=== PATIENT | female | born 1990 | race Hispanic/Latino ===

== ENCOUNTER 2025-03-06 21:31 | Emergency (ER) | payer SELFPAY ==
[2025-03-06 21:34] VITALS: BP 116/83
[2025-03-06 22:05] LABS: Hematocrit 39.2 % (37.0-47.0); Hemoglobin 12.5 g/dL (12.0-16.0); Mean Corp Hgb Conc. 31.9 g/dL (33.0-37.0); Mean Corpuscular Volume 88.1 fL (81.0-99.0); Nucleated Red Blood Cells % 0 %; Platelet Count 249 10^3/uL (130-400); Red Cell Dist. Width 13.1 % (11.5-14.5)
[2025-03-06 22:14] LABS: HCG, Serum Qualitative Screen Negative
[2025-03-06 22:22] LABS: ALT (SGPT) 28 U/L (0-35); AST (SGOT) 21 U/L (14-36); Albumin 4.2 g/dl (3.5-5.0); Alkaline Phosphatase 171 U/L (38-126); Blood Urea Nitrogen 14 mg/dl (7-17); Calcium 9.2 mg/dl (8.4-10.2); Carbon Dioxide 26 mmol/L (22-30); Chloride 106 mmol/L (98-107); Glucose 115 mg/dl (70-99); Potassium 4.1 mmol/L (3.5-5.1); Sodium 137 mmol/L (135-145); Total Protein 7.4 g/dl (6.3-8.2); eGFR > 60.00
[2025-03-06 22:31] VITALS: BP 118/72
--- NOTE | 2025-03-06 22:40 | ED.GENMED ---
History of Present Illness
General
Chief Complaint: Fainting/Passed Out
Source: patient
Exam Limitations: none
Time Seen by Provider: 03/06/25 22:21
Nursing documentation reviewed up to this point in time: agreed with
History of Present Illness
History of Present Illness:
The patient is a 34-year-old female who reports that she took a whole THC gummy at around 5 PM last night. In about an hour, patient felt tingling and numb on both sides of her body. Additionally, patient felt lightheaded. She nearly passed out
but did not pass out. Patient reports mild palpitations. She denies chest pain and shortness of breath. Patient reports she now feels better. She denies nausea and vomiting. She denies a history of PE and DVT.
Past History
Past History
ED Past Medical History: None
ED Past Surgical History: Other
Social History
Tobacco: Non-smoker
Alcohol: Other
Drug: Other
Personal:
Living: with family
Employment: Employed
Family History
Family History: Other
Review of Systems
Review of Systems
Allergies reviewed?: Yes
All Other Systems: ROS reviewed and negative except as documented in HPI and ROS
Constitutional: Reports fatigue
EENT: Reports no symptoms
Respiratory: Reports no symptoms
Cardiac: Reports other (Near syncope but not syncope)
ABD/GI: Reports no symptoms
: Reports no symptoms
Musculoskeletal: Reports no symptoms
Skin: Reports no symptoms
Neurological: Reports weakness (Generalized weakness)
Endocrine: Reports no symptoms
Hematologic/Lymphatic: Reports no symptoms
Psychiatric: Reports no symptoms
Phy Exam
Physical Exam
Physical Exam:
Physical Exam
General: no apparent distress, not acutely ill.
Neck: supple. no meningeal signs. normal psoterior pharynx
Heart: s1/s2 regular rate and rhythm, no murmur. equal radial pulses.
Lungs: no acute respiratory distress. clear bilaterally
Abdomen: normal bowel sounds. not tender. no CVAT
Neuro: alert and oriented. no focal neurological deficits. Equal and intact sensation bilaterally. 5 out of 5 strength in all extremities without drift. Steady gait.
Skin: no rash
Psychiatric: well kept. interactive and cooperative
Extremities: no edema. no calf tenderness. negative homans. good distal pulses
Course
Orders/Labs/Results
Orders:
Orders
03/06/25 21:34
Electrocardiogram (*1) Urgent
Reason for Study: Syncope
EKG- Treatment ONCE
Test Result ONCE
03/06/25 21:50
Complete Blood Count/With Diff Urgent
Comprehensive Metabolic Panel Urgent
HCG, Serum Qualitative Screen Urgent
Abnormal Lab Results
03/06/25
21:50
WBC 11.7 H 10^3/uL
(4.8-10.8)
MCHC 31.9 L g/dL
(33.0-37.0)
MPV 11.6 H fL
(7.4-10.4)
Absolute Neuts (auto) 7.0 H 10^3/uL
(1.4-6.5)
Absolute Lymphs (auto) 3.6 H 10^3/uL
(1.2-3.4)
Absolute Monos (auto) 0.9 H 10^3/uL
(0.1-0.6)
Creatinine 0.4 L mg/dL
(0.6-1.0)
Glucose 115 H mg/dl
(70-99)
Alkaline Phosphatase 171 H U/L
(38-126)
03/06/25 21:50
03/06/25 21:50
Vital Signs
Initial and Last Documented VS:
Initial Vital Signs
Temp Pulse Resp BP Pulse Ox
97.5 F 91 16 116/83 99
03/06/25 21:34 03/06/25 21:34 03/06/25 21:34 03/06/25 21:34 03/06/25 21:34
Last Documented Vital Signs
Temp Pulse Resp BP Pulse Ox
98.4 F 85 17 118/72 99
03/06/25 22:43 03/06/25 22:43 03/06/25 22:43 03/06/25 22:43 03/06/25 22:43
MDM/Problems Addressed
Differential Diagnosis Includes:
Adverse effect of marijuana, cardiac arrhythmia, acute dehydration
MDM/Problems Addressed:
Patient presents with near syncopal episode after using THC gummy
*Pulse Oximetry
SaO2: 99
Oxygen Mode of Delivery: Room air
Patient hypoxic: no
*EKG
Interpreted by ED Provider?: Yes
Interpretation: normal
Comparison EKG: no comparison EKG present
Rate: normal
Rhythm: sinus
[place]: normal axis
Interval: normal interval
QRS Pattern: normal QRS
Ischemia: no ischemia
*[employer] M[employer]ainer Interpretation
Rate: normal
Interpretation: normal
Rhythm: sinus
*Critical Care Note
Total Time (30-74mins, 75-104mins- exclusive of procedures): Not Applicable
Data Reviewed
Source: patient
ED Attending Note
-
Portions of this chart may have been created with voice recognition software.� Occasional wrong word or��sound alike� substitutions may have occurred due to the inherent limitations of voice recognition software.
Discharge Plan
Departure
Patient Disposition: Home (Routine Discharge)
Date of Disposition: 03/06/25
Time of Disposition: 23:47
Patient with high blood pressure during this ER visit?: No
Condition: Good
Covid-19: Not Applicable
Discharge Problem:
Adverse effect of cannabis
Instructions: Marijuana, Near Fainting
Referrals:
NONE,* [Family Provider, Internal Medicine]
Activity Restrictions/Additional Instructions:
Beber muchos liquidos. Regresar por dolor en el pecho o desmayo
Interventions
Interventions:
*Risk Screen - Suicide Last Done: 03/06/25 21:34
*Neglect/Abuse Screening Last Done: 03/06/25 21:34
ED- Cardiac Assessment Last Done: 03/06/25 22:43
ED- Neurological Assessment Last Done: 03/06/25 22:43
Discharge Date and Time
Print Language: INDIAN
[2025-03-06 22:43] VITALS: BP 118/72
[2025-03-06 23:00] VITALS: BP 123/79
[2025-03-07] VITALS: BP 138/83
== END 2025-03-07 00:51 | disposition home or self-care (01) ==
LOC: EMR 21:31
PROVIDERS: EMERGENCY PHYSICIAN Emergency Medicine
DX: R55 Syncope and collapse (principal); T40.715A Adverse effect of cannabis, initial encounter
CPT/HCPCS: 99284; 80053; 84703; 85025; 93005